=== PATIENT | male | born 1960 | race Caucasian/White ===

== ENCOUNTER 2018-04-15 12:41 | Emergency (ER) | payer MEDICARE ==
[~2018-04-15] VITALS: Ht 185.4 cm; Wt 106.6 kg
[~2018-04-15 12:41] MED LIST: ALBU90OI INH; ALBU90OI6 INH; AMLO10 PO; AMLO5 PO; ASPI81CH PO; ASPI81EC PO; ATOR40TA PO; CYCL10 PO; DULO30 PO; DULO60 PO; FINA5 PO; Flomax0.4 MG PO; HYDACE5 PO; HYDMOR2 PO; KETO10 PO; LOSA25 PO; LOSARTAN-HCTZ1 EAC2 PO; LOSHYD PO; METO100ER PO; NEBI10 PO; NEBI5 PO; NITR.4SL SL; NITR.6SL SL; Nitrostat0.4 MG SL; Norco 10-325 T1 EACH PO; OLME40 PO; OXYACE5T PO; OXYC10TA19 PO; PROM25 PO; Percocet 5-3251 EACH PO; SALM50IP INH; TAMS.4ER PO; TIOT18 INH; Zofran Odt4 MG PO
[2018-04-15] MEDS ORDERED: Pepcid40 MG PO (13:21)
[2018-04-15] MEDS ORDERED: Prednisone20 MG PO (13:21)
== END 2018-04-15 13:33 | disposition home or self-care (01) ==
LOC: ER 12:41
DX: T63.441A Toxic effect of venom of bees, accidental (unintentional), initial encounter (principal); J44.9 Chronic obstructive pulmonary disease, unspecified; Z88.5 Allergy status to narcotic agent; Z91.030 Bee allergy status; Z88.8 Allergy status to other drugs, medicaments and biological substances; Z79.899 Other long term (current) drug therapy; Z79.82 Long term (current) use of aspirin; Z79.51 Long term (current) use of inhaled steroids; Z87.442 Personal history of urinary calculi; Z87.891 Personal history of nicotine dependence
CPT/HCPCS: 96372; 99283; J2930; Q0163

== ENCOUNTER 2018-08-28 13:08 | Emergency (ER) | payer MEDICARE, OTHER ==
[~2018-08-28] VITALS: Ht 188 cm; Wt 117.9 kg
[~2018-08-28 13:08] MED LIST changes: +Pepcid40 MG PO; +Prednisone20 MG PO
[2018-08-28 14:25] LABS: Source, Urine Clean Catch
[2018-08-28 14:34] LABS: BASOPHILS ABSOLUTE AUTO 0.09 K/mm3 (0.00-0.23); BASOPHILS PERCENT AUTO 1 % (0-2); EOSINOPHILS ABSOLUTE AUTO 0.25 K/mm3 (0.00-0.68); EOSINOPHILS PERCENT AUTO 3 % (0-6); Hematocrit 46.5 % (37.0-53.0); Hemoglobin 16.2 g/dL (13.5-17.5); IMMATURE GRAN ABSOLUTE AUTO 0.03 K/mm3 (0.00-0.10); IMMATURE GRAN PERCENT AUTO 0 % (0-1); LYMPHOCYTES ABSOLUTE AUTO 2.07 K/mm3 (0.84-5.20); LYMPHOCYTES PERCENT AUTO 28 % (21-46); MONOCYTES ABSOLUTE AUTO 0.84 K/mm3 (0.16-1.47); MONOCYTES PERCENT AUTO 11 % (4-13); Mean Corpuscular HGB 30.6 pg (26.0-34.0); Mean Corpuscular HGB Conc 34.8 g/dL (31.5-36.5); Mean Corpuscular Volume 88 fL (80-100); Mean Platelet Volume 8.8 fL (9.1-12.4); NEUTROPHILS ABSOLUTE AUTO 4.24 K/mm3 (1.96-9.15); NEUTROPHILS PERCENT AUTO 56 % (41-73); Platelet Count 367 K/mm3 (150-400); RDW Coefficient Variation 11.9 % (11.7-14.2); RDW Standard Deviation 37.9 fL (35.1-46.3); Red Blood Cell Count 5.29 M/mm3 (4.30-5.90); White Blood Cell Count 7.52 K/mm3 (4.00-11.30)
[2018-08-28 14:42] LABS: Bilirubin, Urine Neg (Neg); Blood, Urine Neg (Neg); Glucose Qualitative, Urine Neg (Neg); Ketones, Urine Neg (Neg); Leukocyte Esterase, Urine Neg (Neg); Nitrite, Urine Neg (Neg); Protein, Urine Neg (Neg); Urobilinogen, Urine NORM (Normal)
[2018-08-28 14:50] LABS: Alanine Aminotransfer (ALT/SGP 62 U/L (12-78); Albumin, Blood 4.3 g/dL (3.4-5.0); Albumin/Globulin Ratio 1.3 (0.8-1.8); Alk Phos 112 U/L (50-136); Anion Gap 7 mmol/L (6-16); Aspartate Aminotrans (AST/SGOT 26 U/L (12-37); Bilirubin, Total 0.7 mg/dL (0.1-1.0); Blood Urea Nitrogen 11 mg/dL (8-24); Bun/Creatinine Ratio 12.8 (12.0-20.0); CO2, Blood 27 mmol/L (21-32); Calcium, Blood 8.8 mg/dL (8.5-10.1); Chloride, Blood 105 mmol/L (98-108); Creatinine, Blood 0.86 mg/dL (0.60-1.20); Globulin, Blood 3.4 g/dL (2.2-4.0); Glomerular Filtration Rate >60 (60-); Glucose, Blood 114 mg/dL (70-99); Potassium, Blood 3.3 mmol/L (3.5-5.5); Sodium, Blood 139 mmol/L (136-145); Total Protein, Blood 7.7 g/dL (6.4-8.2)
[2018-08-28 14:58] LABS: Appearance, Urine Clear (Clear); Color, Urine Yellow (P-Yellow)
[2018-08-28] MEDS ORDERED: Ultram50 MG PO (17:10)
== END 2018-08-28 17:30 | disposition home or self-care (01) ==
LOC: ER 13:08
PROVIDERS: Physician Assistant
DX: K42.9 Umbilical hernia without obstruction or gangrene (principal); Z79.899 Other long term (current) drug therapy; Z79.52 Long term (current) use of systemic steroids
CPT/HCPCS: 36415; 80053; 81003; 85025; 99283

== ENCOUNTER 2018-09-12 09:05 | Day surgery (SDC) | payer MEDICARE, OTHER ==
[~2018-09-12] VITALS: Ht 185.4 cm; Wt 118.8 kg
[~2018-09-12 09:05] MED LIST changes: +Ultram50 MG PO
--- NOTE | 2018-09-12 11:20 | NUR ---
09/12/18 1120 Chasidy Doan PT AMBULATED TO RESTROOM 1119
--- NOTE | 2018-09-12 13:38 | NUR ---
09/12/18 1338 Neo Newman LATE ENTRY NARRATIVE PATIENT IN SDU RECLINER RESTING COMFORTABLY, PATIENT VSS, TOLERATING PO FLUIDS AND CRACKERS WELL. PATIENT'S ABDOMEN IS SOFT, DRESSING IS CDI. PATIENT EXPRESSED READINESS TO GO HOME. DISCHARGE INSTRUCTIONS REVIEWED WITH PATIENT BY [email or web address], PATIENT DENIES HAVING ANY QUESTIONS AT THIS MOMENT. NURSE ASSISTED PATIENT TO HIS RIDE HOME.
== END 2018-09-12 13:15 | disposition home or self-care (01) ==
LOC: ORSCSDS 09:05
PROVIDERS: Surgery
PROC: 0WUF0JZ Supplement Abdominal Wall with Synthetic Substitute, Open Approach (ICD-10-PCS; principal; 2018-09-12 10:30)
DX: K42.9 Umbilical hernia without obstruction or gangrene (principal); I10 Essential (primary) hypertension; J44.9 Chronic obstructive pulmonary disease, unspecified; I25.2 Old myocardial infarction; Z79.899 Other long term (current) drug therapy
CPT/HCPCS: C1781; J0690; J1100; J1885; J2250; J2405; J3010; J7120

== ENCOUNTER 2018-11-19 12:03 | Emergency (ER) | payer MEDICARE ==
[~2018-11-19] VITALS: Ht 188 cm; Wt 117.0 kg
[2018-11-19] MEDS ORDERED: Norco 5-325 Ta1 EACH PO (15:44)
[2018-11-19] MEDS ORDERED: Robaxin500 MG PO (15:44)
== END 2018-11-19 15:47 | disposition home or self-care (01) ==
LOC: ER 12:03
DX: S30.0XXA Contusion of lower back and pelvis, initial encounter (principal); I25.10 Atherosclerotic heart disease of native coronary artery without angina pectoris; Z87.891 Personal history of nicotine dependence; Z91.030 Bee allergy status; Z88.5 Allergy status to narcotic agent; Z79.82 Long term (current) use of aspirin; Z79.899 Other long term (current) drug therapy; W10.9XXA Fall (on) (from) unspecified stairs and steps, initial encounter
CPT/HCPCS: 72070; 72100; 73502; A9270-GY; J1885

== ENCOUNTER 2018-11-25 15:03 | Emergency (ER) | payer MEDICARE ==
[~2018-11-25] VITALS: Ht 182.9 cm; Wt 113.4 kg
[~2018-11-25 15:03] MED LIST changes: +Norco 5-325 Ta1 EACH PO; +Robaxin500 MG PO
[2018-11-25] MEDS ORDERED: Cyclobenzaprine5 MG PO (16:17)
[2018-11-25] MEDS ORDERED: Percocet 5-3251 EACH PO (16:17)
== END 2018-11-25 16:26 | disposition home or self-care (01) ==
LOC: ER 15:03
DX: M54.5 Low back pain (principal); J44.9 Chronic obstructive pulmonary disease, unspecified; Z85.3 Personal history of malignant neoplasm of breast; Z88.5 Allergy status to narcotic agent; Z88.8 Allergy status to other drugs, medicaments and biological substances; Z91.030 Bee allergy status; Z79.899 Other long term (current) drug therapy; Z79.82 Long term (current) use of aspirin
CPT/HCPCS: 99283

== ENCOUNTER 2019-04-12 10:06 | Emergency (ER) | payer MEDICARE ==
[~2019-04-12] VITALS: Ht 185.4 cm; Wt 106.6 kg
[~2019-04-12 10:06] MED LIST changes: +Cyclobenzaprine5 MG PO
[2019-04-12] MEDS ORDERED: Ultram50 MG PO (11:24)
[2019-04-12] MEDS ORDERED: NAPR550 PO (11:24)
== END 2019-04-12 11:34 | disposition home or self-care (01) ==
LOC: ER 10:06
DX: S50.02XA Contusion of left elbow, initial encounter (principal); W22.8XXA Striking against or struck by other objects, initial encounter; Z88.5 Allergy status to narcotic agent; Z88.8 Allergy status to other drugs, medicaments and biological substances; Z91.030 Bee allergy status; Z79.899 Other long term (current) drug therapy; Z79.82 Long term (current) use of aspirin; J44.9 Chronic obstructive pulmonary disease, unspecified; Z85.3 Personal history of malignant neoplasm of breast; F17.200 Nicotine dependence, unspecified, uncomplicated
CPT/HCPCS: 73080; 99283-25

== ENCOUNTER 2019-11-10 11:21 | Emergency (ER) | payer MEDICARE, OTHER ==
[~2019-11-10] VITALS: Ht 185.4 cm; Wt 112.5 kg
[~2019-11-10 11:21] MED LIST changes: +NAPR550 PO
== END 2019-11-10 12:25 | disposition home or self-care (01) ==
LOC: ER 11:21
DX: S31.31XA Laceration without foreign body of scrotum and testes, initial encounter (principal); J44.9 Chronic obstructive pulmonary disease, unspecified; I25.2 Old myocardial infarction; Z79.51 Long term (current) use of inhaled steroids; Z79.899 Other long term (current) drug therapy; Z79.82 Long term (current) use of aspirin; Z88.8 Allergy status to other drugs, medicaments and biological substances; Z91.030 Bee allergy status; Z88.6 Allergy status to analgesic agent; X58.XXXA Exposure to other specified factors, initial encounter
CPT/HCPCS: 12001; 99282-25

== ENCOUNTER → 2019-11-25 | Outpatient (CLI) | payer MEDICARE | END | disposition home or self-care (01) | LOC: PLD 08:24 → LAB SHORT 08:24 | DX: M79.5 Residual foreign body in soft tissue (principal) | CPT/HCPCS: 88305; 88312 ==

== ENCOUNTER 2020-10-05 11:29 | Emergency (ER) | payer MEDICARE ==
[~2020-10-05] VITALS: Ht 185.4 cm; Wt 90.7 kg
[~2020-10-05 11:29] MED LIST changes: +Aspirin EC81 MG PO
[2020-10-05 12:36] LABS: BASOPHILS ABSOLUTE AUTO 0.03 K/mm3 (0.00-0.23); BASOPHILS PERCENT AUTO 0 % (0-2); EOSINOPHILS PERCENT AUTO 0 % (0-6); Hematocrit 53.8 % (37.0-53.0); Hemoglobin 18.4 g/dL (13.5-17.5); IMMATURE GRAN ABSOLUTE AUTO 0.14 K/mm3 (0.00-0.10); IMMATURE GRAN PERCENT AUTO 1 % (0-1); LYMPHOCYTES ABSOLUTE AUTO 1.14 K/mm3 (0.84-5.20); LYMPHOCYTES PERCENT AUTO 5 % (21-46); MONOCYTES ABSOLUTE AUTO 2.05 K/mm3 (0.16-1.47); MONOCYTES PERCENT AUTO 9 % (4-13); Mean Corpuscular HGB 31.3 pg (26.0-34.0); Mean Corpuscular HGB Conc 34.2 g/dL (31.5-36.5); Mean Corpuscular Volume 92 fL (80-100); Mean Platelet Volume 9.5 fL (9.1-12.4); NEUTROPHILS ABSOLUTE AUTO 20.06 K/mm3 (1.96-9.15); NEUTROPHILS PERCENT AUTO 86 % (41-73); Platelet Count 256 K/mm3 (150-400); RDW Coefficient Variation 13.6 % (11.7-14.2); RDW Standard Deviation 46.5 fL (35.1-46.3); Red Blood Cell Count 5.87 M/mm3 (4.30-5.90); White Blood Cell Count 23.42 K/mm3 (4.00-11.30)
[2020-10-05 13:04] LABS: Albumin, Blood 3.5 g/dL (3.4-5.0); Bilirubin, Total 1.1 mg/dL (0.1-1.0); Bun/Creatinine Ratio 9.4 (12.0-20.0); Calcium, Blood 9.4 mg/dL (8.5-10.1); Creatinine, Blood 3.94 mg/dL (0.60-1.20); Globulin, Blood 3.4 g/dL (2.2-4.0); Total Protein, Blood 6.9 g/dL (6.4-8.2)
[2020-10-05 13:35] LABS: Influenza A, PCR NEGATIVE (NEGATIVE); Influenza B, PCR NEGATIVE (NEGATIVE); Resp Syncytial Virus, PCR NEGATIVE (NEGATIVE); SARS-Cov-2 (COVID-19) PCR, MMC NEGATIVE (NEGATIVE)
[2020-10-05] MEDS ORDERED: Bystolic20 MG PO (13:56)
[2020-10-05] MEDS ORDERED: ATOR40TA PO (13:56)
[2020-10-05] MEDS ORDERED: INCRUSE ELPT 62.5 INH (13:57)
[2020-10-05] MEDS ORDERED: LATANOPROST2.5 M2 BOTHEYES (13:58)
[2020-10-05] MEDS ORDERED: SPIRONOLACTONE25 MG PO (13:58)
[2020-10-05] MEDS ORDERED: ISTALOL2.5 M1 BOTHEYES (13:58)
[2020-10-05 14:26] LABS: International Normalized Ratio 1.26; Prothrombin Time Results 13.3 Sec (9.7-11.5)
[2020-10-05 14:30] LABS: Creatine Kinase MB 83.7 ng/mL (0.0-3.6); Creatine Kinase MB Index 9.4 (0.0-4.0)
[2020-10-05 15:23] LABS: Magnesium, Blood 2.2 mg/dL (1.6-2.4); Phosphorus, Blood 3.6 mg/dL (2.5-4.9)
--- NOTE | 2020-10-05 15:42 | NUR ---
Echocardiogram completed. Stat overread requested by Donald Cassidy. Images sent to [facility]
[2020-10-05 16:04] LABS: Source, Urine Clean Catch
[2020-10-05 16:12] LABS: Appearance, Urine Hazy (Clear); Bilirubin, Urine Neg (Neg); Blood, Urine 1+ (Neg); Color, Urine Yellow (P-Yellow); Glucose Qualitative, Urine Neg (Neg); Ketones, Urine 1+ (Neg); Leukocyte Esterase, Urine 1+ (Neg); Nitrite, Urine Neg (Neg); Protein, Urine 2+ (Neg); Specific Gravity, Urine 1.025 (1.003-1.022); Urobilinogen, Urine 1+ (Normal)
[2020-10-05 16:23] LABS: Bacteria Few /hpf; Renal Epithelial Few /hpf (0-Rare); Squamous Epithelial Cells Mod /hpf (Few); Transitional Epithelial Cells Few /hpf (0-Rare)
[2020-10-05 16:26] LABS: U Amphetamine Screen Not Detected; U Barbituate Screen Not Detected; U Benzodiazapine Screen Not Detected; U Buprenorphine Screen Not Detected; U Cannabinoids Screen Not Detected; U Cocaine Screen Not Detected; U Methadone Screen Not Detected; U Methamphetamine Screen Not Detected; U Opiates Screen Not Detected; U Oxycodone Screen Not Detected; U Phencyclidine Screen Not Detected; U Propoxyphene Screen Not Detected
== END 2020-10-05 16:10 | disposition short-term general hospital (02) ==
LOC: ER 11:29
PROVIDERS: Emergency Medicine; Nurse Practitioner Acute Care
DX: I71.00 Dissection of unspecified site of aorta (principal); I50.9 Heart failure, unspecified; N17.9 Acute kidney failure, unspecified; J18.9 Pneumonia, unspecified organism; J44.9 Chronic obstructive pulmonary disease, unspecified; I25.2 Old myocardial infarction; F17.200 Nicotine dependence, unspecified, uncomplicated; Z20.822 Contact with and (suspected) exposure to COVID-19; Z79.82 Long term (current) use of aspirin; Z79.899 Other long term (current) drug therapy; Z87.442 Personal history of urinary calculi; Z88.5 Allergy status to narcotic agent; Z91.030 Bee allergy status; Z88.8 Allergy status to other drugs, medicaments and biological substances; Z88.1 Allergy status to other antibiotic agents
CPT/HCPCS: 0241U; 36415; 36430; 51798; 71045; 71275; 74175; 76770; 80053; 81001; 82550; 82553; 83605; 83735; 83880; 84100; 84145; 84484; 85025; 85610; 85730; 86850; 86900; 86901; 86920; 87040; 87086; 93005; 93010; 93306; 94640; 96365-59; 96375-59; 99285-25; A9270; J0456; J0696; J2405; J7030; J7050; P9016; Q9967

== ENCOUNTER → 2021-06-14 | Outpatient (CLI) | payer MEDICARE, OTHER ==
[~2021-06-14] MED LIST changes: +Bystolic20 MG PO; +INCRUSE ELPT 62.5 INH; +ISTALOL2.5 M1 BOTHEYES; +LATANOPROST2.5 M2 BOTHEYES; +SPIRONOLACTONE25 MG PO
== END ==
LOC: LAB 14:30 → LAB SHORT 14:30
DX: R10.9 Unspecified abdominal pain (principal); Z88.5 Allergy status to narcotic agent; Z91.038 Other insect allergy status; Z88.8 Allergy status to other drugs, medicaments and biological substances; Z88.1 Allergy status to other antibiotic agents
CPT/HCPCS: 87077; 87086; 87186

== ENCOUNTER 2021-07-14 11:03 | Emergency (ER) | payer MEDICARE, OTHER ==
[~2021-07-14] VITALS: Ht 185.4 cm; Wt 102.1 kg
[2021-07-14] MEDS ORDERED: TRAM50 PO (12:44)
== END 2021-07-14 12:50 | disposition other institution (70) ==
LOC: ER 11:03
DX: S20.212A Contusion of left front wall of thorax, initial encounter (principal); Z88.5 Allergy status to narcotic agent; Z91.030 Bee allergy status; Z88.8 Allergy status to other drugs, medicaments and biological substances; Z79.82 Long term (current) use of aspirin; Z79.899 Other long term (current) drug therapy; J44.9 Chronic obstructive pulmonary disease, unspecified; I25.2 Old myocardial infarction; F17.210 Nicotine dependence, cigarettes, uncomplicated; W18.30XA Fall on same level, unspecified, initial encounter
CPT/HCPCS: 71046; 99283-25